=== PATIENT | male | born 1975 | race Caucasian/White ===

== ENCOUNTER 2016-09-02 09:39 | Day surgery (SDC) | payer OTHER ==
--- NOTE | ~2016-09-02 | OP ---
Record Of Operation [facility] [address] [place]. [address] NAME: CAROL ANN MELGAR JR : 73 [place]US : [place] [facility] [place] [id number] AGE: 40 ADM/REG DATE : 09/02/16 MR#: [id number] REPORT SERV DATE: 09/02/16 DICTATED BY: BLAINE ARMIJO III DATE: 09/02/16 REPORT STATUS : Draft TRANSCRIBED BY: MODL DATE: 09/02/16 DATE OF PROCEDURE: 09/02/2016 PREOPERATIVE DIAGNOSIS: Torn anterior labrum, right shoulder. POSTOPERATIVE DIAGNOSIS: Torn anterior labrum, right shoulder. SURGICAL PROCEDURE PERFORMED: Arthroscopic repair of torn anterior labrum using the Arthrex 2.9 x 15 mm bioabsorbable suture anchor with FiberLink. SURGEON: Blaine Armijo M.D. STACKER ATTENDANT: Enma Veras. ANESTHESIA: General. ANTIBIOTICS: Ancef 2 g. COMPLICATIONS: None. CRYSTALLOID: 800 mL. ESTIMATED BLOOD LOSS: 5 mL. POSITION: Beach chair. MEDICATIONS: Interscalene block for postoperative pain control. PROCEDURE IN DETAIL: The patient was brought to the operating room, placed on the table in supine position, and general anesthesia was induced. 2 g was administered intravenously in the operating room, an interscalene block was provided per Anesthesia Department for postoperative pain control. The patient was positioned beach chair type position and the right shoulder and upper extremity were entirely prepped and draped in the usual sterile fashion. With the Flight Steward Spider arm dunaway in proper position. Assuring good anesthesia, a longitudinal traction was applied to the right upper extremity. A standard posterior portal was created and the arthroscope was inserted. The glenohumeral joint was inflated with sterile normal saline by means of the arthroscopic pump. The articular surfaces were normal. Undersurface of the rotator cuff complex was normal. Biceps tendon appeared normal. A switching stick was used to create an anterior portal. Subscapularis was normal. There was a tear to the anterior labrum which was detached. The biceps anchor was stressed and was noted to be normal without a SLAP tear. A 5.0 cannula was inserted through the anterior portal and a rasp was used to rasp the anterior cortex of the labrum for better healing. At this point, a suture passer was used to pass a FiberLink through the labrum and adjacent to the anterior glenoid. A grasper was used to pull the tail and out at the anterior portal. This was done through a single portal technique. The FiberLink was passed through which loop and pulled tightly down to the anterior labrum. A guide was then Record Of Operation [facility] [id number] [place]. [address] NAME: CAROL ANN MELGAR JR : 73 STATUS : REG [facility] PAT#: [id number] AGE: 40 ADM/REG DATE : 09/02/16 MR#: [id number] REPORT SERV DATE: 09/02/16 DICTATED BY: BLAINE ARMIJO III DATE: 09/02/16 REPORT STATUS : Draft TRANSCRIBED BY: MODL DATE: 09/02/16 placed on the anterior edge of the labrum at the 3 o'clock position, where it was rasp and the Arthrex drill was used, it was bottomed down to a depth of about 15 mm. At this point, a 2.9 Arthrex bioabsorbable suture anchor was added to the FiberLink and passed down the cannula, it was anchored into the drill hole, aeroplane pilot hole that was just placed securing the anterior labrum. This was a 2.9 x 15.5 suture anchor. The tail end was cut and the repair was nice and tight. It was stressed with a hook, and noted to be in a nice repair. No further pathology was appreciated. Instrumentation was removed. Portals were closed with 4 Monocryl suture and op-site dressings. A DonJoy sling was applied to the right upper extremity. The patient tolerated the procedure well and brought to recovery room in satisfactory condition. SUSHIL/AMNA Blaine Armijo III, M.D. / [id number] CC: Natalie Mason III, ANGELA LOUISE
[~2016-09-02 09:39] MED LIST: ASAB PO; NORCO1 TAB PO; PAX20 PO; PRIN20 PO; ZANTAC150 MG PO
[2016-09-02 10:51] LABS: HEMATOCRIT 45.1 % (40.0-51.0); HEMOGLOBIN 15.5 g/dL (13.6-17.8)
[2016-09-02 10:57] LABS: BUN (BLOOD UREA NITROGEN) 7 MG/DL (6-23); CALCIUM, SERUM 8.7 MG/DL (8.5-10.4); CHLORIDE, SERUM 107 MMOL/L (96-112); CO2 (CARBON DIOXIDE) 31 MMOL/L (24-34); CREATININE 1.24 MG/DL (0.70-1.30); GFR AFRICAN AMERICAN 83 ML/MIN (>=60); GFR NON AFRICAN AMERICAN 72 ML/MIN (>=60); GLUCOSE, SERUM 103 MG/DL (60-99); POTASSIUM, SERUM 4.4 MMOL/L (3.5-5.3); SODIUM, SERUM 141 MMOL/L (135-148)
== END 2016-09-02 23:59 | disposition home health service (06) ==
LOC: MSC 09:39
PROVIDERS: Orthopaedic Surgery
PROC: 0RQJ4ZZ Repair Right Shoulder Joint, Percutaneous Endoscopic Approach (ICD-10-PCS; principal; 2016-09-02 12:45)
DX: S43.401A Unspecified sprain of right shoulder joint, initial encounter (principal); I10 Essential (primary) hypertension; F17.210 Nicotine dependence, cigarettes, uncomplicated; Z98.890 Other specified postprocedural states
CPT/HCPCS: 80048; 85014; 85018; 93005; A9270-GY; C1713; J0690; J1040; J2250; J2405; J2710; J2795; J3010